=== PATIENT | female | born 1990 | race Two or more races ===

== ENCOUNTER 2021-02-04 02:30 | Emergency (ER) | payer OTHER ==
[~2021-02-04] VITALS: Ht 170.2 cm; Wt 117.9 kg
[2021-02-04] MEDS ORDERED: PRENATABS FA T1 EACH (02:58)
[2021-02-04] MEDS ORDERED: MACROBID 100 M100 MG PO (06:31)
== END 2021-02-04 06:57 ==
LOC: ER 02:30
DX: R10.2 Pelvic and perineal pain (principal); O26.892 Other specified pregnancy related conditions, second trimester; Z3A.18 18 weeks gestation of pregnancy